=== PATIENT | female | born 1985 | race Caucasian/White ===

== ENCOUNTER 2016-07-12 12:18 | Emergency (ER) | payer MEDICARE, MEDICAID ==
[~2016-07-12] VITALS: Ht 165.1 cm; Wt 68.0 kg
[~2016-07-12 12:18] MED LIST: ALPR1TAB7 PO; FLUC150T PO; HYDR-3820 PO; ONDA8TAB13 PO; PHEN-639 PO; POTA-51 PO; SULF1TAB35 PO
[2016-07-12] MEDS ORDERED: ORPHENADRINE 60 MG/2 ML (NORFLEX) AMP IM ONE (12:30)
[2016-07-12] MEDS ORDERED: KETOROLAC 60 MG/2 ML VIAL IM ONE (12:30)
[2016-07-12] MEDS ORDERED: SULF1TAB35 PO (12:31)
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
[2016-07-12] MEDS ORDERED: FEXO1TAB43 PO (12:38)
[2016-07-12] MEDS ORDERED: HYDR12.5 PO (12:38)
[2016-07-12] MEDS ORDERED: NF-DICLOTA PO (12:38)
[2016-07-12] MEDS ORDERED: GABA-488 PO (12:38)
[2016-07-12] MEDS ORDERED: OXCA300T PO (12:38)
[2016-07-12] MEDS ORDERED: ESCI20TA PO (12:38)
[2016-07-12] MEDS ORDERED: AMOX500C2 PO (13:08)
--- NOTE | 2016-07-12 13:10 | Diagnostic Imaging Report ---
PROCEDURE: CT head and CT cervical spine without contrast. TECHNIQUE: Multiple contiguous axial images were obtained through the brain and cervical spine without the use of intravenous contrast. Sagittal and coronal reformations through the cervical spine were then performed. INDICATION: Status post fall. COMPARISON: Comparison is made with a CT head from May 27, 2016. FINDINGS: There is no CT evidence of acute intracranial hemorrhage. There is no evidence of intracranial mass effect or shift. Garcia and white matter differentiation appears preserved. The ventricles are appropriate in size and configuration. The basilar cisterns are patent. The posterior fossa is unremarkable. The mastoid air cells appear clear on the right. The mastoids on the left are hypopneumatized. The visualized paranasal sinuses are clear. Cervical spine alignment is normal. There is normal alignment of the craniocervical junction. There is a normal relationship of the lateral masses of C1 and C2. The facets are normally aligned. There is no disc space or facet joint widening. There is no prevertebral soft tissue thickening. Vertebral body heights are well maintained. There is no acute cervical spine fracture. Lung apices appear clear. Soft tissues of the neck demonstrate no acute abnormalities. IMPRESSION: 1. No CT evidence of an acute intracranial abnormality. 2. No CT evidence of acute cervical spine fracture or traumatic malalignment. Dictated by: Dictated on workstation # [id number]
[2016-07-12 13:27] VITALS: BP 128/82
[2016-07-12] MEDS ORDERED: flexeril PO (13:29)
[2016-09-12] MEDS ORDERED: CLIN150C17 PO (09:44)
[2016-09-12] MEDS ORDERED: PROM25TA14 PO (09:44)
== END 2016-07-12 13:27 | disposition home or self-care (01) ==
LOC: EDUNIT# 12:18 → ER 12:20
DX: S16.1XXA Strain of muscle, fascia and tendon at neck level, initial encounter (principal); T24.202A Burn of second degree of unspecified site of left lower limb, except ankle and foot, initial encounter; W10.9XXA Fall (on) (from) unspecified stairs and steps, initial encounter; X19.XXXA Contact with other heat and hot substances, initial encounter; Y92.009 Unspecified place in unspecified non-institutional (private) residence as the place of occurrence of the external cause; Y99.8 Other external cause status
CPT/HCPCS: 70450; 72125; 96372

== ENCOUNTER 2016-08-01 19:09 | Emergency (ER) | payer OTHER, MEDICARE, MEDICAID ==
[~2016-08-01] VITALS: Ht 167.6 cm; Wt 70.3 kg
[~2016-08-01 19:09] MED LIST changes: +AMOX500C2 PO; +ESCI20TA PO; +FEXO1TAB43 PO; +GABA-488 PO; +HYDR12.5 PO; +NF-DICLOTA PO; +OXCA300T PO; +flexeril PO
--- OUTSIDE RECORDS SUMMARY | 2016-08-01 19:16 | XMS REPORT | Continuity of Care Document ---
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 If you do not see the information that you expected, contact Release of Information in the Health Information Management department at [phone] for further assistance in locating additional records.[facility] Active Allergies and Adverse Reactions Not on File Current Medications Not on file Active Problems Not on file Most Recent Encounters Date Type Specialty Providers Description 07/24/2016 Telephone Neurology Rowena Will MD Appointment Social History Tobacco Use Types Packs/Day Years Used Date Never Assessed Plan of Care Date Type Specialty Providers Description 08/27/2016 Appointment Neurology Health Maintenance Due Date Last Done Comments Physical (Comprehensive) 01/16/1991 Exam Pertussis Vaccine 01/16/1995 Tetanus Vaccine 01/16/2001 Cervical Cancer Screening 01/16/2005 Influenza Vaccine 02/28/2016 Results from Last 3 Months Not on file
[2016-08-01] MEDS ORDERED: morphine INJ 10 MG/ML 1ML (SYR OR VIAL) IM STA (19:54)
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
[2016-08-01 20:15] LABS: BASOPHILS % (AUTO) 1 % (0-10); EOSINOPHILS # (AUTO) 0.1 10^3/uL (0.0-0.3); EOSINOPHILS % (AUTO) 1 % (0-10); LYMPHOCYTES % (AUTO) 34 % (12-44); MEAN CORPUSCULAR HEMOGLOBIN 30 PG (25-34); MEAN CORPUSCULAR HGB CONC 34 G/DL (32-36); MEAN CORPUSCULAR VOLUME 86 FL (80-99); MEAN PLATELET VOLUME 10.5 FL (7.4-10.4); MONOCYTES # (AUTO) 0.9 X 10^3 (0.0-1.0); MONOCYTES % (AUTO) 10 % (0-12); NEUTROPHILS # (AUTO) 4.8 X 10^3 (1.8-7.8); NEUTROPHILS % (AUTO) 55 % (42-75); PLATELET COUNT 330 10^3/uL (130-400); RED BLOOD COUNT 4.27 10^6/uL (4.35-5.85); RED CELL DISTRIBUTION WIDTH 12.9 % (10.0-14.5); WHITE BLOOD COUNT 8.8 10^3/uL (4.3-11.0)
[2016-08-01 20:19] LABS: PH,URINE 7 (5-9)
[2016-08-01 20:20] LABS: BILIRUBIN,URINE NEGATIVE (NEGATIVE); KETONES,URINE NEGATIVE (NEGATIVE); LEUKOCYTE ESTERASE ,URINE 1+ (NEGATIVE); NITRITE,URINE NEGATIVE (NEGATIVE); PROTEIN,URINE 1+ (NEGATIVE); UROBILINOGEN,URINE NORMAL (NORMAL); WBC,URINE 0-2 /HPF
[2016-08-01 20:34] LABS: ALANINE AMINOTRANSFERASE 52 U/L (0-55); ALBUMIN 4.5 G/DL (3.2-4.5); ANION GAP 10 MMOL/L (5-14); ASPARTATE AMINO TRANSFERASE 33 U/L (5-34); BILIRUBIN,TOTAL 0.2 MG/DL (0.1-1.0); BLOOD UREA NITROGEN 9 MG/DL (7-18); BUN/CREATININE RATIO 12; CALCIUM 8.9 MG/DL (8.5-10.1); CARBON DIOXIDE 25 MMOL/L (21-32); CHLORIDE 94 MMOL/L (98-107); CREATININE SERUM 0.75 MG/DL (0.60-1.30); GFR ESTIMATED > 60; GLUCOSE 72 MG/DL (70-105); POTASSIUM 3.3 MMOL/L (3.6-5.0); SODIUM 129 MMOL/L (135-145); TOTAL PROTEIN 6.5 G/DL (6.4-8.2)
[2016-08-01 21:33] VITALS: BP 126/82
[2016-09-12] MEDS ORDERED: CLIN150C17 PO (09:44)
[2016-09-12] MEDS ORDERED: PROM25TA14 PO (09:44)
== END 2016-08-01 21:32 | disposition home or self-care (01) ==
LOC: EDUNIT# 19:09 → ER 19:10
DX: S29.011A Strain of muscle and tendon of front wall of thorax, initial encounter (principal); M79.7 Fibromyalgia; G40.909 Epilepsy, unspecified, not intractable, without status epilepticus; F31.9 Bipolar disorder, unspecified; F17.210 Nicotine dependence, cigarettes, uncomplicated; Z79.899 Other long term (current) drug therapy; V43.52XA Car driver injured in collision with other type car in traffic accident, initial encounter; Y92.009 Unspecified place in unspecified non-institutional (private) residence as the place of occurrence of the external cause; Y99.8 Other external cause status
CPT/HCPCS: 36415; 80053; 81000; 85025; 96372; 99282

== ENCOUNTER 2016-08-05 20:20 | Emergency (ER) | payer OTHER, MEDICARE, MEDICAID ==
[~2016-08-05] VITALS: Ht 162.6 cm; Wt 72.6 kg
--- OUTSIDE RECORDS SUMMARY | 2016-08-05 20:25 | XMS REPORT | Continuity of Care Document ---
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 If you do not see the information that you expected, contact Release of Information in the Health Information Management department at [phone] for further assistance in locating additional records.[facility] Active Allergies and Adverse Reactions Not [...]
[2016-08-05] MEDS ORDERED: ORPHENADRINE 60 MG/2 ML (NORFLEX) AMP IM STA (21:45)
[2016-08-05] MEDS ORDERED: morphine INJ 10 MG/ML 1ML (SYR OR VIAL) IM STA (21:45)
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
[2016-08-05] MEDS ORDERED: CYCL10TA9 PO (23:52)
[2016-08-05] MEDS ORDERED: PRD20T PO (23:52)
[2016-08-05] MEDS ORDERED: RT-ALBUINH IH (23:58)
[2016-08-06] MEDS ORDERED: CIPR500T4 PO (00:16)
[2016-08-06] MEDS ORDERED: FLUC150T PO (00:16)
[2016-08-06 00:33] VITALS: BP 110/78
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
[2016-09-12] MEDS ORDERED: PROM25TA14 PO (09:44)
[2016-09-12] MEDS ORDERED: CLIN150C17 PO (09:44)
== END 2016-08-06 00:33 | disposition home or self-care (01) ==
LOC: EDUNIT# 20:20 → ER 20:21
DX: S39.012A Strain of muscle, fascia and tendon of lower back, initial encounter (principal); S39.011A Strain of muscle, fascia and tendon of abdomen, initial encounter; R51 Headache; M54.16 Radiculopathy, lumbar region; J98.11 Atelectasis; Z79.899 Other long term (current) drug therapy; V43.52XA Car driver injured in collision with other type car in traffic accident, initial encounter; Y92.410 Unspecified street and highway as the place of occurrence of the external cause; Y99.8 Other external cause status
CPT/HCPCS: 70450; 71100; 72128; 72131; 96372; 99281

== ENCOUNTER 2016-09-11 05:48 | Observation (INO) | payer MEDICARE, MEDICAID ==
[~2016-09-11] VITALS: Ht 162.6 cm; Wt 63.5 kg
[~2016-09-11 05:48] MED LIST changes: +CIPR500T4 PO; +CYCL10TA9 PO; +PRD20T PO; +RT-ALBUINH IH
--- OUTSIDE RECORDS SUMMARY | 2016-09-11 05:57 | XMS REPORT | Continuity of Care Document ---
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 If you do not see the information that you expected, contact Release of Information in the Health Information Management department at [phone] for further assistance in locating additional records.[facility] Active Allergies and Adverse Reactions Allergen Noted Date Severity Reactions Comments Bactrim 08/27/2016 Medium HIVES Ceclor 08/27/2016 High ANAPHYLAXIS Current Medications Prescription Sig. Disp. Refills Start End Date Status Date polyethylene glycol 3350 Take 17 g by mouth daily. Active (MIRALAX) 17 g packet albuterol (VENTOLIN HFA) Inhale 2 Puffs by mouth Active 90 mcg/actuation inhaler into the lungs every 4 hours as needed for Wheezing or Shortness of Breath. Shake well before use. ALPRAZolam (XANAX) 1 mg Take 1 mg by mouth three Active tablet times daily. prednisone (DELTASONE) 20 Take 20 mg by mouth as Active mg tablet directed. Take 2 tablets by mouth once daily for 6 days albuterol (PROVENTIL HFA) Inhale 2 Puffs by mouth Active 90 mcg/actuation inhaler into the lungs every 4 hours as needed for Wheezing or Shortness of Breath. Shake well before use. HYDROcodone/acetaminophen Take 1 Tab by mouth every Active (+) (NORCO) 10/325 mg 6 hours as needed for tablet Pain OXcarbazepine (TRILEPTAL) Take 450 mg by mouth Active 300 mg tablet twice daily. fluconazole (DIFLUCAN) Take 150 mg by mouth Active 150 mg tablet daily. linaclotide(+) (LINZESS) Take 145 mcg by mouth Active 145 mcg cap capsule daily 30 minutes before breakfast. diclofenac sodium Take 100 mg by mouth Active (VOLTAREN-XR) 100 mg xr daily. Take with food. tablet amoxicillin (AMOXIL) 500 Take 500 mg by mouth Active mg capsule every 4 hours. 10 days hydroCHLOROthiazide Take 12.5 mg by mouth Active (HYDRODIURIL) 12.5 mg every morning. capsule fexofenadine(+) (CONCEPCION) Take 180 mg by mouth Active 180 mg tablet daily. gabapentin (NEURONTIN) Take 600 mg by mouth Active 600 mg tablet three times daily. Active Problems Problem Noted Date Fatigue 08/27/2016 Myalgia 08/27/2016 Dry mouth 08/27/2016 Dysphagia 08/27/2016 Exercise intolerance 08/27/2016 Most Recent Encounters Date Type Specialty Providers Description 08/29/2016 Scan Only Neurology Rowena Will MD 08/27/2016 Office Visit Neurology Rowena Will MD Chronic fatigue ( Primary Dx); Myalgia; Dry mouth; Dysphagia, unspecified type; Exercise intolerance 08/27/2016 Orders Only Neurology Rowena Will MD 07/24/2016 Telephone Neurology Rowena Will MD Appointment Social History Tobacco Use Types Packs/Day Years Used Date Current Every Day Smoker Cigarettes 12 Tobacco Cessation: Ready to Quit: Yes Comments: Alcohol Use Drinks/Week oz/Week Comments No Last Filed Vital Signs Vital Sign Reading Time Taken Blood Pressure 115/68 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 Pulse 88 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 Temperature - - Respiratory Rate - - Height 1.676 m (5' 6") 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 Weight 75.206 kg (165 lb 12.8 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 oz) Body Mass Index 26.77 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 Oxygen Saturation - - Plan of Care Date Type Specialty Providers Description 09/23/2016 Appointment Neurology Rowena Will MD [phone] [facility] [address] [place] [address] [phone] (Fax) 01/05/2017 Appointment Neurology Rowena Will MD [phone] [facility] [address] [place] [address] [phone] (Fax) Health Maintenance Due Date Last Done Comments Physical (Comprehensive) 01/16/1991 Exam Pertussis Vaccine 01/16/1995 Tetanus Vaccine 01/16/2001 Cervical Cancer Screening 01/16/2005 Influenza Vaccine 02/27/2017 Results from Last 3 Months ALDOLASE (08/27/2016 3:53 PM) Component Value Range Aldolase 3.4Comment: < OR=8.1 U/L REPORT COMMENT: FASTING:NO Test [facility]formed at[facility] [address] JITENDRA STEEL DO,MPH ANTI SSA ANTI SSB AB (08/27/2016 3:53 PM) Component Value Range Anti-SSA <1.0 NEG <1.0 NEG AI Anti-SSB <1.0 NEGComment: <1.0 NEG AI Test Performed at: [facility] [address] [address] JITENDRA STEEL DO,MPH ANTI-NUCLEAR ANTIBODY(NICHO) (08/27/2016 3:53 PM) Component Value Range NICHO Screen NEGATIVEComment: NEGATIVE NICHO IFA is a first line screen for detecting the presence of up to approximately 150 autoantibodies in various autoimmune diseases. A negative NICHO IFA result suggests NICHO-associated autoimmune diseases are not present at this time. Visit Physician FAQs for interpretation of all antibodies in the [place], prevalence, and association with diseases at http://education.A Curated World/ faq/DDL351 Test Performed at: [facility] [address] JITENDRA STEEL DO,MPH PYRUVATE(PYRUVIC ACID) (08/27/2016 3:53 PM) Component Value Range Pyruvic Acid 1.63 (H)Comment: 0.30-1.50 mg/dL Test Performed at: [facility] MICA HOPKINS MD,PHD LACTIC ACID(LACTATE) (08/27/2016 3:53 PM) Component Value Range Lactic Acid 16Comment: 4-16 mg/dL Test Performed at: [facility] MICA HOPKINS MD,PHD CREATINE KINASE-CPK (08/27/2016 3:53 PM) Component Value Range Creatine Kinase 33Comment: 29-143 U/L Test Performed at: [facility] [place] [address] [place] [address] JITENDRA STEEL DO,MPH
[2016-09-11] MEDS ORDERED: NS IV 1000 ML 1,000 ML IV ONE (07:44)
[2016-09-11] MEDS ORDERED: KETOROLAC 30 MG/ML VIAL IVP ONE (07:45)
[2016-09-11 08:13] LABS: BASOPHILS % (AUTO) 0 % (0-10); EOSINOPHILS # (AUTO) 0.1 10^3/uL (0.0-0.3); EOSINOPHILS % (AUTO) 0 % (0-10); LYMPHOCYTES # (AUTO) 1.5 X 10^3 (1.0-4.0); LYMPHOCYTES % (AUTO) 10 % (12-44); MEAN CORPUSCULAR HEMOGLOBIN 29 PG (25-34); MEAN CORPUSCULAR HGB CONC 34 G/DL (32-36); MEAN CORPUSCULAR VOLUME 84 FL (80-99); MEAN PLATELET VOLUME 10.3 FL (7.4-10.4); MONOCYTES # (AUTO) 1.4 X 10^3 (0.0-1.0); MONOCYTES % (AUTO) 9 % (0-12); NEUTROPHILS % (AUTO) 80 % (42-75); PLATELET COUNT 377 10^3/uL (130-400); RED BLOOD COUNT 3.94 10^6/uL (4.35-5.85); WHITE BLOOD COUNT 14.9 10^3/uL (4.3-11.0)
[2016-09-11 08:32] LABS: BAND NEUTROPHILS 3 %; BASOPHILS % (MANUAL) 0 %; EOSINOPHILS % (MANUAL) 1 %; LYMPHOCYTES % (MANUAL) 6 %; NEUTROPHILS % (MANUAL) 81 %
[2016-09-11] MEDS ORDERED: fentaNYL INJECTION 100 MCG/2 ML AMP IVP ONE ×2 (09:45→10:45)
--- NOTE | 2016-09-11 09:46 | Diagnostic Imaging Report ---
Ultrasound of the left axilla. INDICATION: Painful lump. FINDINGS: There is a 2.7 x 1.7 x 2.5-cm lymph node with preserved fatty hilum seen in the axilla. There is no fluid collection or evidence of abscess. IMPRESSION: No evidence of abscess. There is a mildly enlarged lymph node seen. Dictated by: Dictated on workstation # [id number]
[2016-09-11 10:08] LABS: ALANINE AMINOTRANSFERASE 26 U/L (0-55); ALBUMIN 3.7 G/DL (3.2-4.5); ANION GAP 8 MMOL/L (5-14); ASPARTATE AMINO TRANSFERASE 23 U/L (5-34); BILIRUBIN,TOTAL 0.4 MG/DL (0.1-1.0); BLOOD UREA NITROGEN 9 MG/DL (7-18); BUN/CREATININE RATIO 13; CALCIUM 8.5 MG/DL (8.5-10.1); CARBON DIOXIDE 22 MMOL/L (21-32); CHLORIDE 104 MMOL/L (98-107); CREATININE SERUM 0.67 MG/DL (0.60-1.30); GFR ESTIMATED > 60; GLUCOSE 89 MG/DL (70-105); SODIUM 134 MMOL/L (135-145); TOTAL PROTEIN 5.9 G/DL (6.4-8.2)
[2016-09-11] MEDS ORDERED: VANCOMYCIN INJECTION 1,000 MG in NS (IVPB) 250 ML IV ONE (10:15)
--- NOTE | 2016-09-11 10:34 | ED General ---
General Chief Complaint: Skin/Wound Problems Stated Complaint: LEFT SIDE UNDER ARM,LYMPH NODES SWOLLEN Nursing Triage Note: reports L axillae lymph nodes swelling x 3 days Nursing Sepsis Screen: No Definite Risk Source of Information: Patient Exam Limitations: No Limitations History of Present Illness Time Seen by Provider: 07:35 Initial Comments This 31-year-old young lady presents to emergency room with about 3 days of pain and worsening swelling in the left axilla. Last night she had night sweats and reported a fever at home of 101. She believes she is dehydrated as she is extremely thirsty. She has a borderline elevated temperature along with tachycardia on initial assessment. Patient denies any history of prior abscesses or MRSA. Patient reports she has recently been on steroids which she finished about 2 weeks ago. She later mentioned she is also on azithromycin at present for respiratory symptoms. Allergies and Home Medications Allergies Coded Allergies: Sulfa (Sulfonamide Antibiotics) (Verified Allergy, Unknown, hives, 08/05/16) cefaclor (Verified Allergy, Unknown, 05/10/16) Home Medications Albuterol Sulfate 6.7 Gm Hfa.aer.ad 2 PUFF IH Q4H PRN PRN SHORTNESS OF BREATH ( Reported) Alprazolam 1 Mg Tablet 1 MG PO TID (Reported) Azithromycin 250 Mg Tablet 5Days 250 MG PO UD (Reported) TAKE 2 TABLETS ON DAY ONE THEN TAKE 1 TABLET DAILY FOR FOUR MORE DAYS FILLED 09-08-16 Diclofenac Sod 100 Mg Tab 100 MG PO DAILY (Reported) LAST FILLED #30 08-09-16 Escitalopram Oxalate 20 Mg Tablet 20 MG PO DAILY (Reported) Fexofenadine/Pseudoephedrine 1 Each Tab.er.24h 1 TAB PO DAILY (Reported) Fluconazole 150 Mg Tablet 3Days 150 MG PO DAILY (Reported) 3 DAY THERAPY FILLED 09-08-16 HAS NOT STARTED TAKING IT YET Gabapentin 600 Mg Tablet 600 MG PO TID (Reported) Hydrocodone/Acetaminophen 1 Each Tablet 1 TAB PO TID PRN PRN PAIN (Reported) Ibuprofen 200 Mg Tablet 600 MG PO TID PRN PRN MILD PAIN (Reported) TAKES 3 (200MG) TABLETS Oxcarbazepine 300 Mg Tablet 300 MG PO BID (Reported) Spironolactone 25 Mg Tablet 25 MG PO DAILY (Reported) Constitutional: see HPI EENTM: no symptoms reported Respiratory: see HPI Cardiovascular: see HPI Gastrointestinal: no symptoms reported Genitourinary: no symptoms reported : No Musculoskeletal: no symptoms reported Skin: see HPI Psychiatric/Neurological: No Symptoms Reported Hematologic/Lymphatic: See HPI Past Cldscns-Hyqlhd-Mxukvu Hx Patient Social History Alcohol Use: Denies Use Recreational Drug Use: No Smoking Status: Current Everyday Smoker Type Used: Cigarettes Recent Foreign Travel: No Contact w/Someone Who Travel: No Recent Infectious Disease Expo: No Recent Hopitalizations: No Immunizations Up To Date Tetanus Booster (TDap): Unknown Seasonal Allergies Seasonal Allergies: No Surgeries HX Surgeries: Yes Surgeries: Section, Hysterectomy Respiratory Hx Respiratory Disorders: Yes Respiratory Disorders: Asthma, Chronic Bronchitis Cardiovascular Hx Cardiac Disorders: No Neurological Hx Neurological Disorders: Yes Neurological Disorders: Seizure Disorder 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 Genitourinary Hx Genitourinary Disorders: No Gastrointestinal Hx Gastrointestinal Disorders: No Musculoskeletal Hx Musculoskeletal Disorders: Yes ("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") Musculoskeletal Disorders: Fibromyalgia, Chronic Back Pain Endocrine Hx Endocrine Disorders: No HEENT HX ENT Disorders: No Cancer Hx Cancer: No Psychosocial Hx Psychiatric Problems: Yes Behavioral Health Disorders: Anxiety, ODD, PTSD, Bipolar, Depression Integumentary HX Skin/Integumentary Disorder: No Blood Transfusions Hx Blood Disorders: No Adverse Reaction to a Blood Tr: No Family Medical History Significant Family History: No Pertinent Family Hx Physical Exam-Suspected Sepsis Physical Exam Vital Signs Vital Sign - Last 12Hours 09/11/16 09/11/16 06:42 12:00 Temp 99.8 Pulse 105 Resp 18 B/P 111/65 Pulse Ox 99 O2 Delivery Room Air Capillary Refill : Less Than 3 Seconds Blood Pressure Mean: 80 General Appearance: WD/WN Mild Distress HEENT: Normal ENT Inspection Pharynx Normal Neck: Normal Inspection Respiratory: Lungs Clear Normal Breath Sounds No Accessory Muscle Use No Respiratory Distress Cardiovascular: No Edema No Murmur Tachycardia Gastrointestinal: Non Tender Soft Extremity: Other (There is a palpable lump fairly deep in the left axilla with surrounding erythema, swelling, and tenderness. 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 Norm as Tested Skin: warm/dry other (Erythema in the left axilla and nearby left upper arm) Lymphatic: Other (Possible enlarged left axillary lymph node) Progress/Results/Core Measures Suspected Sepsis Recent Fever Within 48 Hours: No Infection Criteria Present: Suspected New Infection New/Unexplained Altered Menta: No Sepsis Screen: No Definite Risk Sepsis Diagnosis: SIRS Temperature:99.3 Pulse: 92 Respiratory Rate: 18 Laboratory Tests 09/11/16 08:00: White Blood Count 14.9H Blood Pressure 111 /65 Mean: 80 Laboratory Tests 09/11/16 08:00: Creatinine 0.67, Platelet Count 377, Total Bilirubin 0.4 Results/Orders Lab Results Laboratory Tests Test 09/11/16 08:00 Range/Units Alanine Aminotransferase (ALT/SGPT) 26 0-55 U/L Albumin 3.7 3.2-4.5 G/DL Alkaline Phosphatase 74 40-136 U/L Anion Gap 8 5-14 MMOL/L Aspartate Amino Transf (AST/SGOT) 23 5-34 U/L BUN/Creatinine Ratio 13 Band Neutrophils 3 % Basophils # (Auto) 0.0 0.0-0.1 10^3/uL Basophils % (Manual) 0 % Basophils (%) (Auto) 0 0-10 % Blood Morphology Comment NORMAL Blood Urea Nitrogen 9 7-18 MG/DL C-Reactive Protein High Sensitivity 3.50 H 0.00-0.50 MG/DL Calcium Level 8.5 8.5-10.1 MG/DL Carbon Dioxide Level 22 21-32 MMOL/L Chloride Level 104 98-107 MMOL/L Creatinine 0.67 0.60-1.30 MG/DL Eosinophils # (Auto) 0.1 0.0-0.3 10^3/uL Eosinophils % (Manual) 1 % Eosinophils (%) (Auto) 0 0-10 % Estimat Glomerular Filtration Rate > 60 Glucose Level 89 70-105 MG/DL Hematocrit 33 L 35-52 % Hemoglobin 11.3 L 11.5-16.0 G/DL Lactic Acid Level 0.68 0.50-2.00 MMOL/L Lymphocytes # (Auto) 1.5 1.0-4.0 X 10^3 Lymphocytes % (Manual) 6 % Lymphocytes (%) (Auto) 10 L 12-44 % Mean Corpuscular Hemoglobin 29 25-34 PG Mean Corpuscular Hemoglobin Concent 34 32-36 G/DL Mean Corpuscular Volume 84 80-99 FL Mean Platelet Volume 10.3 7.4-10.4 FL Monocytes # (Auto) 1.4 H 0.0-1.0 X 10^3 Monocytes % (Manual) 9 % Monocytes (%) (Auto) 9 0-12 % Neutrophils # (Auto) 12.0 H 1.8-7.8 X 10^3 Neutrophils % (Manual) 81 % Neutrophils (%) (Auto) 80 H 42-75 % Platelet Count 377 130-400 10^3/uL Potassium Level 4.0 3.6-5.0 MMOL/L Red Blood Count 3.94 L 4.35-5.85 10^6/uL Red Cell Distribution Width 14.0 10.0-14.5 % Sodium Level 134 L 135-145 MMOL/L Total Bilirubin 0.4 0.1-1.0 MG/DL Total Protein 5.9 L 6.4-8.2 G/DL White Blood Count 14.9 H 4.3-11.0 10^3/uL My Orders Orders-DAVID CASTRO MD Cbc With Automated Diff (09/11/16 07:44) Hs C Reactive Protein (09/11/16 07:44) Saline Lock/Iv-Start (09/11/16 07:44) Ns Iv 1000 Ml (Sodium Chloride 0.9%) (09/11/16 07:44) Ketorolac Injection (Toradol Injection) (09/11/16 07:45) Blood Culture (09/11/16 07:44) Wound Culture (09/11/16 07:44) Lactic Acid Analyzer (09/11/16 07:44) Manual Differential (09/11/16 08:00) Us Left Upper Ext [id number] (09/11/16 08:59) Comprehensive Metabolic Panel (09/11/16 09:43) Fentanyl Injection (Sublimaze Injection (09/11/16 09:45) Vancomycin Injection (Vancomycin Injecti (09/11/16 10:15) Chest 1 View, Ap/Pa Only (09/11/16 10:36) Fentanyl Injection (Sublimaze Injection (09/11/16 10:45) Medications Given in ED Current Medications Medications Dose Ordered Sig/Addie Route Start Time Stop Time Status Last Admin Dose Admin Fentanyl Citrate 50 mcg 50 mcg ONCE ONCE IVP 09/11/16 09:45 09/11/16 09:46 DC 09/11/16 09:50 50 MCG Vancomycin HCl/ Sodium Chloride 250 ml @ 250 mls/hr ONCE ONCE IV 09/11/16 10:15 3/16/17 11:14 DC 09/11/16 10:32 250 MLS/HR Vital Signs/I&O Vital Sign - Last 12Hours 09/11/16 09/11/16 09/11/16 09/11/16 09:45 11:47 12:00 13:19 Temp 99.3 99.3 Pulse 92 91 Resp 16 Pulse Ox 97 97 O2 Delivery Room Air 09/11/16 09/11/16 09/11/16 13:55 16:07 19:44 Temp 97.3 97.3 98.4 Pulse 60 76 Resp 18 16 B/P 107/63 116/75 Pulse Ox 100 98 O2 Delivery Room Air Room Air Capillary Refill : Less Than 3 Seconds Blood Pressure Mean: 80 Progress Note #1: Progress Note Sepsis was suspected after source of infection with cellulitis was identified along with leukocytosis and tachycardia. Heart rate improved with a liter of normal saline. Pain was treated with Toradol followed by fentanyl. Vancomycin was initiated in the emergency room after blood cultures were drawn. Progress Note #2: Time: 10:35 Progress Note Upon further questioning of recent antibiotic use, patient states she is on azithromycin for upper respiratory symptoms which she did not mention initially. Chest x-ray was ordered as a result. She did state prednisone has been finished for about 2 weeks and should therefore not be responsible for her leukocytosis. Diagnostic Imaging Diagonstic Imaging: Xray Plain Films/CT/US/NM/MRI: chest Comments Chest x-ray viewed by me. Report not yet available at the time of admission. No acute abnormalities were appreciated by the ER provider. Diagonstic Imaging: Ultrasound Plain Films/CT/US/NM/MRI: other (left axilla) Comments NAME: KOURTNEY CHAMPAGNE [employer] [facility] REC#: [id number] PT STATUS: REG ER : 1985 PHYSICIAN: DAVID CASTRO MD ADMIT DATE: 09/11/16/ER Signed Date of Exam: 09/11/16 US LEFT UPPER EXT [id number] Ultrasound of the left axilla. INDICATION: Painful lump. FINDINGS: There is a 2.7 x 1.7 x 2.5-cm lymph node with preserved fatty hilum seen in the axilla. There is no fluid collection or evidence of abscess. IMPRESSION: No evidence of abscess. There is a mildly enlarged lymph node seen. Dictated by: Dictated on workstation # [id number] Dict: 09/11/16 0941 Trans: 09/11/16 0957 MAIKEL [id number] Interpreted by: SOURAV REYNA MD Electronically signed by:SOURAV REYNA MD 09/11/16 1000 Departure Communication Time/Spoke to Admitting Phy: 10:25 Communication Case reviewed with Dr. Britton. She is agreeable to admitting the patient for at least observation to ensure improvement on antibiotics before discharge home. Patient technically meets criteria for sepsis as she has met SIRS criteria with tachycardia, leukocytosis, and source of infection. Impression Impression: Primary Impression: Sepsis Qualified Code: A41.9 - Sepsis, unspecified organism Additional Impressions: Cellulitis of left axilla Lymphadenitis Disposition: ADMITTED INPATIENT Condition: Improved Decision to Admit Reason: Admit from ER (General) Decision to Admit/Date: Sep 11, 2016 Time/Decision to Admit Time: 07:44 Departure-Patient Inst. Referrals: [facility] (PCP/Family) Primary Care Physician DAVID CASTRO MD Sep 11, 2016 10:34
--- NOTE | 2016-09-11 11:07 | Diagnostic Imaging Report ---
Posterior Lopressor the chest. Indication is a less than. Units: The lungs are clear. The heart size is normal. No effusion or pneumothorax. The mediastinum and chris appear unremarkable. IMPRESSION: Unremarkable exam. Dictated by: Dictated on workstation # [id number]
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
[2016-09-11] MEDS ORDERED: NS IV 1000 ML 1,000 ML ONE (13:02)
[2016-09-11] MEDS ORDERED: KETOROLAC 30 MG/ML VIAL ONE (13:03)
[2016-09-11] MEDS ORDERED: RT-ALBUINH IH (13:03)
[2016-09-11] MEDS ORDERED: GABA600T2 PO (13:03)
[2016-09-11] MEDS ORDERED: SPIR25TA PO (13:03)
[2016-09-11] MEDS ORDERED: AZIT250T5 PO (13:03)
[2016-09-11] MEDS ORDERED: FLUC150T2 PO (13:03)
[2016-09-11] MEDS ORDERED: CYCL10TA9 PO (13:03)
[2016-09-11] MEDS ORDERED: VANCOMYCIN 1500 MG/NS 500 ML IVPB IV NR ×2 (13:08)
[2016-09-11] MEDS ORDERED: IBUP-30 PO (13:18)
[2016-09-11] MEDS: KETOROLAC 30 MG/ML VIAL IVP PRN (13:19)
[2016-09-11] MEDS: NS IV 1000 ML 1,000 ML IV SCH (13:20)
[2016-09-11] MEDS ORDERED: VANCOMYCIN 500 MG/NS 100 ML IVPB IV NR ×2 (13:30)
[2016-09-11] MEDS ORDERED: CATHETER FLUSH 10 ML SYR IV PRN (13:45)
[2016-09-11] MEDS: CLINDAMYCIN 900 MG/50 ML IVPB 50 ML IV SCH ×2 (15:29→21:10)
[2016-09-11 16:07] VITALS: BP 107/63
[2016-09-11] MEDS: HYDROcodone/APAP 10 MG/325 MG (LORTAB) TAB PO PRN ×2 (16:47→21:03)
[2016-09-11] MEDS ORDERED: RT-ALBUTEROL HFA (VENTOLIN) PER PUFF IH PRN (19:00)
[2016-09-11] MEDS ORDERED: ALBUTEROL INHALER HFA (VENTOLIN HFA) 18 GM IH PRN (19:30)
[2016-09-11 19:44] VITALS: BP 116/75
[2016-09-11] MEDS: ALPRAZolam 1 MG (XANAX) TAB PO SCH (21:03)
[2016-09-11] MEDS: OXcarbazepine (TRILEPTAL) 300 MG TAB PO SCH (21:03)
[2016-09-11] MEDS: GABAPENTIN 600 MG (NEURONTIN) TAB PO SCH (21:03)
[2016-09-12 00:40] VITALS: BP 121/63
[2016-09-12] MEDS: VANCOMYCIN 1 GM/NS 250 ML IVPB IV SCH ×4 (00:44→13:00)
[2016-09-12] MEDS: NS IV 1000 ML 1,000 ML IV SCH ×2 (00:44→08:28)
[2016-09-12] MEDS: KETOROLAC 30 MG/ML VIAL IVP PRN ×2 (02:32→10:41)
[2016-09-12 04:52] VITALS: BP 136/72
[2016-09-12 04:58] LABS: BASOPHILS % (AUTO) 0 % (0-10); EOSINOPHILS # (AUTO) 0.1 10^3/uL (0.0-0.3); EOSINOPHILS % (AUTO) 1 % (0-10); LYMPHOCYTES # (AUTO) 1.8 X 10^3 (1.0-4.0); LYMPHOCYTES % (AUTO) 16 % (12-44); MEAN CORPUSCULAR HEMOGLOBIN 29 PG (25-34); MEAN CORPUSCULAR HGB CONC 34 G/DL (32-36); MEAN CORPUSCULAR VOLUME 86 FL (80-99); MEAN PLATELET VOLUME 10.9 FL (7.4-10.4); MONOCYTES % (AUTO) 9 % (0-12); NEUTROPHILS # (AUTO) 8.1 X 10^3 (1.8-7.8); NEUTROPHILS % (AUTO) 74 % (42-75); PLATELET COUNT 313 10^3/uL (130-400); RED BLOOD COUNT 3.45 10^6/uL (4.35-5.85)
[2016-09-12] MEDS: CLINDAMYCIN 900 MG/50 ML IVPB 50 ML IV SCH (05:57)
[2016-09-12 08:00] VITALS: BP 120/79
[2016-09-12] MEDS: GABAPENTIN 600 MG (NEURONTIN) TAB PO SCH ×2 (08:26→12:31)
[2016-09-12] MEDS: HYDROcodone/APAP 10 MG/325 MG (LORTAB) TAB PO PRN ×2 (08:26→12:31)
[2016-09-12] MEDS: ALPRAZolam 1 MG (XANAX) TAB PO SCH ×2 (08:26→12:31)
[2016-09-12] MEDS: OXcarbazepine (TRILEPTAL) 300 MG TAB PO SCH (08:27)
[2016-09-12] MEDS ORDERED: NON-FORMULARY MEDICATION 1 EA EA (Escitalopram Oxalate (Lexapro) 20 MG) PO SCH (09:00)
[2016-09-12] MEDS ORDERED: SPIRONOLACTONE 25 MG (ALDACTONE) TAB PO SCH (09:00)
[2016-09-12] MEDS ORDERED: CLIN150C17 PO (09:44)
[2016-09-12] MEDS ORDERED: PROM25TA14 PO (09:44)
[2016-09-12] MEDS ORDERED: ONDANSETRON 4 MG (ZOFRAN) ORAL DISSOLVE TAB PO NR (09:58)
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
[2016-09-12 12:00] VITALS: BP 107/72
[2016-09-12] MEDS ORDERED: TROUGH ORDER-PHARMACY XX NR (12:00)
[2016-09-12] MEDS ORDERED: CLINDAMYCIN 150 MG (CLEOCIN) CAP PO SCH (14:00)
--- NOTE | 2016-09-12 17:00 | Discharge Instructions ---
Discharge [facility] Discharge Medications New, Converted or Re-Newed RX: Transmitted to Pharmacy New Medications: Clindamycin HCl (Clindamycin HCl) 150 Mg Capsule 450 MG PO Q6H #120 Ref 0 CAP Promethazine HCl (Promethazine Tablet) 25 Mg Tablet 25 MG PO Q6H PRN NAUSEA/VOMITING #30 Ref 0 TAB Continued Medications: Albuterol Sulfate (Proventil Hfa) 6.7 Gm Hfa.aer.ad 2 PUFF IH Q4H PRN SHORTNESS OF BREATH EACH Alprazolam (Alprazolam) 1 Mg Tablet 1 MG PO TID TAB Diclofenac Sod (Diclofenac Sodium ER) 100 Mg Tab 100 MG PO DAILY LAST FILLED #30 08-09-16 TAB Escitalopram Oxalate (Lexapro) 20 Mg Tablet 20 MG PO DAILY TAB Fexofenadine/Pseudoephedrine (Aleja-D 24 Hour Tablet) 1 Each Tab.er.24h 1 TAB PO DAILY TAB Gabapentin (Gabapentin) 600 Mg Tablet 600 MG PO TID TAB Hydrocodone/Acetaminophen (Hydrocodon-Acetaminophn 10-325) 1 Each Tablet 1 TAB PO TID PRN PAIN TAB Oxcarbazepine (Oxcarbazepine) 300 Mg Tablet 300 MG PO BID TAB Spironolactone (Aldactone) 25 Mg Tablet 25 MG PO DAILY TAB Discontinued Medications: Azithromycin (Azithromycin) 250 Mg Tablet 250 MG PO UD TAKE 2 TABLETS ON DAY ONE THEN TAKE 1 TABLET DAILY FOR FOUR MORE DAYS FILLED 09-08-17 Days 5 TAB Fluconazole (Fluconazole) 150 Mg Tablet 150 MG PO DAILY 3 DAY THERAPY FILLED 09-08-16 HAS NOT STARTED TAKING IT YET Days 3 TAB Ibuprofen (Advil) 200 Mg Tablet 600 MG PO TID TAKES 3 (200MG) TABLETS PRN MILD PAIN TAB Patient Instructions Goal/Follow Up Appt: Follow up with Denny on 09/18 at 4:20 pm. Return to [facility] For: Fever, worsening redness and swelling under arm, inability to keep down antibiotics Activity & Diet Discharge Diet: Regular Diet Activity as Tolerated: Yes Copy Copies To 1: CASEY Salas BETHANY N MD Sep 12, 2016 9:46 am
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
== END 2016-09-12 15:38 | disposition home or self-care (01) ==
LOC: EDUNIT# 05:48 → ER 05:52 → 4TH 10:44 → UNDOADMOB 10:44 → 4TH 11:45
PROVIDERS: ADMIT Family Medicine; ATTEND Family Medicine
DX: L03.112 Cellulitis of left axilla (principal); M79.7 Fibromyalgia; F32.9 Major depressive disorder, single episode, unspecified; F41.9 Anxiety disorder, unspecified; F43.10 Post-traumatic stress disorder, unspecified; J32.9 Chronic sinusitis, unspecified; G40.909 Epilepsy, unspecified, not intractable, without status epilepticus
CPT/HCPCS: 36415; 71010; 76881; 80053; 80202; 83605; 85007; 85025; 85027; 86141; 87040; 96361; 96365; 96375; 96376; 99211; G0378

== ENCOUNTER 2016-09-15 10:07 | Emergency (ER) | payer MEDICARE, MEDICAID ==
[~2016-09-15] VITALS: Ht 165.1 cm; Wt 77.6 kg
[~2016-09-15 10:07] MED LIST changes: +AZIT250T5 PO; +CLIN150C17 PO; +FLUC150T2 PO; +GABA600T2 PO; +IBUP-30 PO; +PROM25TA14 PO; +SPIR25TA PO
--- OUTSIDE RECORDS SUMMARY | 2016-09-15 10:13 | XMS REPORT | Continuity of Care Document ---
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 If you do not see the information that you expected, contact Release of Information in the Health Information Management department at [phone] for further assistance in locating additional records.[facility] [...] Recent Encounters Date Type Specialty Providers Description 09/12/2016 Telephone Neurology Rowena Will MD Appointment Request 08/29/2016 Scan Only Neurology Rowena Will MD [...] Taken Blood Pressure 115/68 08/27/2016 1:54 PM CLINICAL EDITOR Pulse 88 08/27/2016 1:54 PM CLINICAL EDITOR Temperature - - Respiratory Rate - - Height 1.676 m (5' 6") 08/27/2016 1:54 PM CLINICAL EDITOR Weight 75.206 kg (165 lb 12.8 08/27/2016 1:54 PM CLINICAL EDITOR oz) Body Mass Index 26.77 08/27/2016 1:54 PM CLINICAL EDITOR Oxygen Saturation - - Plan of Care Date Type Specialty Providers Description 09/23/2016 Appointment Neurology Rowena Will MD [id number] [facility] [address] [place] [address] [phone] (Fax) 01/05/2017 Appointment Rowena Saavedra MD [id number] [facility] [address] [place] [address] [phone] (Fax) Health Maintenance Due Date Last Done Comments Physical (Comprehensive) 01/16/1991 Exam Pertussis Vaccine 01/16/1995 Tetanus Vaccine 01/16/2001 Cervical Cancer Screening 01/16/2005 Influenza Vaccine 02/27/2017 Results from Last 3 Months ALDOLASE (08/27/2016 3:53 PM) Component Value Range Aldolase 3.4Comment: < OR=8.1 U/L REPORT COMMENT: FASTING:NO Test Performed at: [facility] [address] JITENDRA STEEL DO,MPH ANTI SSA ANTI SSB AB (08/27/2016 3:53 PM) Component Value Range Anti-SSA <1.0 NEG <1.0 NEG AI Anti-SSB <1.0 NEGComment: <1.0 NEG AI Test Performed at: [facility] [address] JITENDRA STEEL DO,MPH ANTI-NUCLEAR ANTIBODY(NICHO) (08/27/2016 3:53 PM) Component Value Range NICHO Screen NEGATIVEComment: NEGATIVE NICHO IFA is a first line screen for detecting the presence of up to approximately 150 autoantibodies in various autoimmune diseases. A negative NICHO IFA result suggests NICHO-associated autoimmune diseases are not present at this time. Visit Physician FAQs for interpretation of all antibodies in the [place], prevalence, and association with diseases at http://education.Taste Filter/ faq/LVO964 Test Performed at: [facility] [address] JITENDRA STEEL DO,MPH PYRUVATE(PYRUVIC ACID) (08/27/2016 3:53 PM) Component Value Range Pyruvic Acid 1.63 (H)Comment: 0.30-1.50 mg/dL Test Performed at: [facility] [address] [place], [place] MICA HOPKINS MD,PHD LACTIC ACID(LACTATE) (08/27/2016 3:53 PM) Component Value Range Lactic Acid 16Comment: 4-16 mg/dL Test Performed at: [facility] [address] [place], [place] MICA HOPKINS MD,PHD CREATINE KINASE-CPK (08/27/2016 3:53 PM) Component Value Range Creatine Kinase 33Comment: 29-143 U/L Test Performed at: [facility] [address] [place] [address] JITENDRA STEEL DO,MPH
--- NOTE | 2016-09-15 11:29 | ED Integumentary General ---
General Chief Complaint: Skin/Wound Problems Stated Complaint: L ARM INFECTION Nursing Triage Note: Pt c/o L armpit swelling and pain. Pt was recently admitted and treated for celluitis to same area. Pt reports she improved while in hospital and swelling and pain started again last night. Pt states she has been taking home antibiotics as prescribed. Source: patient Exam Limitations: no limitations History of Present Illness Time seen by provider: 11:29 Initial Comments 31-year-old female patient presents to the emergency department complains of cellulitis of the left axilla. Patient reports being dismissed from the hospital on 12 September with oral Cleocin and Phenergan. States she was told previously was an infected lymph node. Reports worsening symptoms after being discharge. Reports one fever of 99.0 at home since being discharged. States there is a small spot in the right axilla as well. Timing/Duration: week, getting worse Location: extremities (left axilla) Possible Cause: no cause identified Modifying Factors: worse with other (worse with palpation) Allergies and Home Medications Allergies Coded Allergies: Sulfa (Sulfonamide Antibiotics) (Verified Allergy, Unknown, hives, 08/05/16) cefaclor (Verified Allergy, Unknown, 05/10/16) Home Medications Albuterol Sulfate 6.7 Gm Hfa.aer.ad 2 PUFF IH Q4H PRN PRN SHORTNESS OF BREATH ( Reported) Alprazolam 1 Mg Tablet 1 MG PO TID (Reported) Clindamycin HCl 150 Mg Capsule #120 450 MG PO Q6H Prescribed by: TAPAN RUBALCAVA on 09/12/16 0944 Diclofenac Sod 100 Mg Tab 100 MG PO DAILY (Reported) LAST FILLED #30 08-09-16 Escitalopram Oxalate 20 Mg Tablet 20 MG PO DAILY (Reported) Fexofenadine/Pseudoephedrine 1 Each Tab.er.24h 1 TAB PO DAILY (Reported) Gabapentin 600 Mg Tablet 600 MG PO TID (Reported) Hydrocodone/Acetaminophen 1 Each Tablet 1 TAB PO TID PRN PRN PAIN (Reported) Minocycline HCl 100 Mg Capsule #14 100 MG PO BID Prescribed by: MITCHEL VÁZQUEZ on 09/15/16 1430 Oxcarbazepine 300 Mg Tablet 300 MG PO BID (Reported) Promethazine HCl 25 Mg Tablet #30 25 MG PO Q6H PRN PRN NAUSEA/VOMITING Prescribed by: TAPAN RUBALCAVA on 09/12/16 0944 Spironolactone 25 Mg Tablet 25 MG PO DAILY (Reported) Constitutional: No chills, No fever, No malaise Respiratory: no symptoms reported Cardiovascular: no symptoms reported Gastrointestinal: no symptoms reported Musculoskeletal: no symptoms reported Skin: see HPI change in color lumps Psychiatric/Neurological: Denies Numbness, Denies Paresthesia, Denies Tingling , Denies Weakness All Other Systems Reviewed Negative Unless Noted: Yes (Negative excepted noted.) Past Issimon-Jqzahu-Pgiepp Hx Patient Social History Alcohol Use: Denies Use Recreational Drug Use: No Smoking Status: Current Everyday Smoker Type Used: Cigarettes Recent Foreign Travel: No Contact w/Someone Who Travel: No Recent Infectious Disease Expo: No Recent Hopitalizations: Yes (cellulitis) Immunizations Up To Date Tetanus Booster (TDap): Unknown Date of Pneumonia Vaccine: Mar 29, 2016 Date of Influenza Vaccine: Mar 29, 2016 Seasonal Allergies Seasonal Allergies: No Surgeries HX Surgeries: Yes Surgeries: Section, Hysterectomy Respiratory Hx Respiratory Disorders: Yes Respiratory Disorders: Asthma, Chronic Bronchitis Cardiovascular Hx Cardiac Disorders: No Neurological Hx Neurological Disorders: Yes Neurological Disorders: Seizure Disorder 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 Genitourinary Hx Genitourinary Disorders: No Gastrointestinal Hx Gastrointestinal Disorders: No Musculoskeletal Hx Musculoskeletal Disorders: Yes ("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") Musculoskeletal Disorders: Fibromyalgia, Chronic Back Pain Endocrine Hx Endocrine Disorders: No HEENT HX ENT Disorders: No Cancer Hx Cancer: No Psychosocial Hx Psychiatric Problems: Yes Behavioral Health Disorders: Anxiety, ODD, PTSD, Depression Integumentary HX Skin/Integumentary Disorder: No Blood Transfusions Hx Blood Disorders: No Adverse Reaction to a Blood Tr: No Reviewed Nursing Assessment Reviewed/Agree w Nursing PMH: Yes Family Medical History Significant Family History: No Pertinent Family Hx Physical Exam Vital Signs Vital Sign - Last 12Hours 09/15/16 11:10 Temp 98.8 Pulse 90 Resp 18 B/P 133/69 Pulse Ox 100 O2 Delivery Room Air Capillary Refill : Less Than 3 Seconds General Appearance: WD/WN no apparent distress Cardiovascular: normal peripheral pulses regular rate, rhythm no murmur Respiratory: lungs clear normal breath sounds no respiratory distress Extremities: normal range of motion normal capillary refill other (5 x 6 cm area of erythema, swelling, and induration left axilla with an enlarged lymph node. Small 2 x 1 cm area of fluctuance superior to the lymph node. Tender to palpation. Right axilla shows a 1 x 0.5 cm infected sebaceous cyst.) Neurologic/Psychiatric: no motor/sensory deficits alert normal mood/affect oriented x 3 Skin: warm/dry other (5 x 6 cm area of erythema, swelling, and induration left axilla with an enlarged lymph node. Small 2 x 1 cm area of fluctuance superior to the lymph node. Tender to palpation. Right axilla shows a 1 x 0.5 cm infected sebaceous cyst.) Skin Problem Location: other (bilateral axilla) Skin Problem Character: erythema, swelling, tenderness, warm, other (5 x 6 cm area of erythema, swelling, and induration left axilla with an enlarged lymph node. Small 2 x 1 cm area of fluctuance superior to the lymph node. Tender to palpation. Right axilla shows a 1 x 0.5 cm infected sebaceous cyst.) I&D : Site: left axilla Blade Size: 11 I & D Procedure: betadine prep sterile drapes applied sterile dressing applied Packing/Drain: / Ligia Drain Progress large amount of purulent drainage noted. culture obtained and sent to lab for testing. ligia drain secured with 3-0 ethilon. blood loss minimal. patient tolerated the procedure well. Progress/Results/Core Measures Results/Orders Lab Results Laboratory Tests Test 09/15/16 12:00 Range/Units Basophils # (Auto) 0.0 0.0-0.1 10^3/uL Basophils (%) (Auto) 0 0-10 % C-Reactive Protein High Sensitivity 2.48 H 0.00-0.50 MG/DL Eosinophils # (Auto) 0.1 0.0-0.3 10^3/uL Eosinophils (%) (Auto) 1 0-10 % Hematocrit 33 L 35-52 % Hemoglobin 11.1 L 11.5-16.0 G/DL Lymphocytes # (Auto) 1.7 1.0-4.0 X 10^3 Lymphocytes (%) (Auto) 13 12-44 % Mean Corpuscular Hemoglobin 29 25-34 PG Mean Corpuscular Hemoglobin Concent 33 32-36 G/DL Mean Corpuscular Volume 85 80-99 FL Mean Platelet Volume 10.2 7.4-10.4 FL Monocytes # (Auto) 0.9 0.0-1.0 X 10^3 Monocytes (%) (Auto) 7 0-12 % Neutrophils # (Auto) 10.6 H 1.8-7.8 X 10^3 Neutrophils (%) (Auto) 79 H 42-75 % Platelet Count 427 H 130-400 10^3/uL Red Blood Count 3.90 L 4.35-5.85 10^6/uL Red Cell Distribution Width 13.9 10.0-14.5 % White Blood Count 13.4 H 4.3-11.0 10^3/uL My Orders Orders-MITCHEL VÁZQUEZ Saline Lock/Iv-Start (09/15/16 11:44) Cbc With Automated Diff (09/15/16 11:44) Hs C Reactive Protein (09/15/16 11:44) Fentanyl Injection (Sublimaze Injection (09/15/16 11:44) Us Left Upper Ext [id number] (09/15/16 12:01) Morphine Injection (Morphine Injection (09/15/16 13:00) Lidocaine/Epi 1% 1:100,000 (Xylocaine /E (09/15/16 13:00) Vital Signs/I&O Vital Sign - Last 12Hours 09/15/16 09/15/16 11:10 14:45 Temp 98.8 Pulse 90 69 Resp 18 18 B/P 133/69 Pulse Ox 100 98 O2 Delivery Room Air Blood Pressure Mean: 90 Diagnostic Imaging Diagonstic Imaging: Ultrasound Plain Films/CT/US/NM/MRI: other (left axilla) Reviewed: Reviewed by Me (radiology report reviewed by me) Departure Communication Progress Notes Laboratory and diagnostic findings discussed with the patient. Patient shows decreased white count and CRP. Plan for discharge to home with addition of minocycline to Cleocin. Patient states she has an appointment with [facility]. I've instructed patient to keep that appointment and to return to the emergency department sooner if needed. Impression Impression: Primary Impression: Abscess of axilla, left Additional Impression: Infected sebaceous cyst Disposition: HOME, SELF-CARE Condition: Improved Departure-Patient Inst. Decision time for Depature: 14:29 Referrals: [facility] (PCP/Family) Primary Care Physician Patient Instructions: Abscess Incision and Drainage (DC) Add. Discharge Instructions: All discharge instructions reviewed with patient and/or family. Voiced understanding. Medications as instructed. Continue usual home medications. Ibuprofen 800 mg by mouth every 8 hours as needed for pain. Ice packs or heating pads as needed for pain. Shower with antibacterial soap. Cover wound with gauze and tape. Follow-up with your primary care physician in the next 2- 3 days for recheck, call tomorrow morning for appointment time. Return to the emergency department for worsened pain, swelling, redness, fever, or any other concerns. Scripts Minocycline HCl 100 Mg [id number] Mg PO BID #14 CAP Ref 0 Prov:MITCHEL VÁZQUEZ 09/15/16 MITCHEL VÁZQUEZ Sep 15, 2016 11:29
[2016-09-15] MEDS ORDERED: fentaNYL INJECTION 100 MCG/2 ML AMP IVP STA (11:44)
[2016-09-15 12:06] LABS: BASOPHILS % (AUTO) 0 % (0-10); EOSINOPHILS # (AUTO) 0.1 10^3/uL (0.0-0.3); EOSINOPHILS % (AUTO) 1 % (0-10); LYMPHOCYTES # (AUTO) 1.7 X 10^3 (1.0-4.0); LYMPHOCYTES % (AUTO) 13 % (12-44); MEAN CORPUSCULAR HEMOGLOBIN 29 PG (25-34); MEAN CORPUSCULAR HGB CONC 33 G/DL (32-36); MEAN CORPUSCULAR VOLUME 85 FL (80-99); MEAN PLATELET VOLUME 10.2 FL (7.4-10.4); MONOCYTES # (AUTO) 0.9 X 10^3 (0.0-1.0); MONOCYTES % (AUTO) 7 % (0-12); NEUTROPHILS # (AUTO) 10.6 X 10^3 (1.8-7.8); NEUTROPHILS % (AUTO) 79 % (42-75); PLATELET COUNT 427 10^3/uL (130-400); RED CELL DISTRIBUTION WIDTH 13.9 % (10.0-14.5); WHITE BLOOD COUNT 13.4 10^3/uL (4.3-11.0)
[2016-09-15] MEDS ORDERED: LIDOCAINE/EPI 1%-1:100,000 (XYLOCAINE) 20ML INJ STA (13:00)
[2016-09-15] MEDS ORDERED: morphine INJ 10 MG/ML 1ML (SYR OR VIAL) IVP STA (13:00)
--- NOTE | 2016-09-15 13:08 | Diagnostic Imaging Report ---
Ultrasound of the left axilla. INDICATION: Painful lump and redness in the left axilla. FINDINGS: There is a lobulated hypoechoic area measuring 4.2 x 1.8 x 3.3 cm with no internal vascularity that may relate to an abscess. There is an enlarged lymph node measuring 3.3 x 1.8 x 2.4 cm. IMPRESSION: There is a subcutaneous complicated fluid collection suggested likely related to abscess. Dictated by: Dictated on workstation # [id number]
[2016-09-15] MEDS ORDERED: MINO100C2 PO (14:30)
[2016-09-15 14:45] VITALS: BP 109/64
== END 2016-09-15 14:55 | disposition home or self-care (01) ==
LOC: EDUNIT# 10:07 → ER 10:08
DX: L02.412 Cutaneous abscess of left axilla (principal); F17.210 Nicotine dependence, cigarettes, uncomplicated
CPT/HCPCS: 10060; 36415; 76881; 85025; 86141; 87070; 87077; 87186; 87205; 96374; 96375

== ENCOUNTER 2016-11-30 17:03 | Emergency (ER) | payer MEDICARE, MEDICAID ==
[~2016-11-30] VITALS: Ht 167.6 cm; Wt 63.5 kg
[~2016-11-30 17:03] MED LIST changes: +MINO100C2 PO
--- NOTE | 2016-11-30 18:23 | Diagnostic Imaging Report ---
INDICATION: Fall. EXAMINATION: Three views of the right ankle. FINDINGS: The ankle mortise is intact. Soft tissue swelling is noted over the lateral malleolus. No evidence of fractures. The talar plafond shows no evidence of cortical defect. IMPRESSION: Soft tissue swelling with no bony abnormalities. Dictated by: Dictated on workstation # [id number]
--- NOTE | 2016-11-30 18:33 | ED Lower Extremity ---
General Chief Complaint: Lower Extremity Stated Complaint: R FOOT INJ Nursing Triage Note: TWISTED RIGHT ANKLE Nursing Sepsis Screen: No Definite Risk Source: patient Exam Limitations: no limitations History of Present Illness Time seen by provider: 18:33 Initial Comments 31-year-old female patient presents to the emergency department complains of right ankle pain after twisting her ankle while going down the stairs. Denies following and hitting her head. Denies loss of consciousness. Location Injury Occurred: home Onset: this afternoon Pain/Injury Location: right ankle Method of Injury: twisted Modifying Factors: Worse With Movement Allergies and Home Medications Allergies Coded Allergies: Sulfa (Sulfonamide Antibiotics) (Verified Allergy, Unknown, hives, 08/05/16) cefaclor (Verified Allergy, Unknown, 05/10/16) Home Medications Albuterol Sulfate 6.7 Gm Hfa.aer.ad, 2 PUFF IH Q4H PRN for SHORTNESS OF BREATH, (Reported) Alprazolam 1 Mg Tablet, 1 MG PO TID, (Reported) Diclofenac Sod 100 Mg Tab, 100 MG PO DAILY, (Reported) LAST FILLED #30 08-09-16 Escitalopram Oxalate 20 Mg Tablet, 20 MG PO DAILY, (Reported) Fexofenadine/Pseudoephedrine 1 Each Tab.er.24h, 1 TAB PO DAILY, (Reported) Gabapentin 600 Mg Tablet, 600 MG PO TID, (Reported) Hydrocodone/Acetaminophen 1 Each Tablet, 1 TAB PO TID PRN for PAIN, (Reported) Oxcarbazepine 300 Mg Tablet, 300 MG PO BID, (Reported) Promethazine HCl 25 Mg Tablet, 25 MG PO Q6H PRN for NAUSEA/VOMITING, #30 Ref 0 Prescribed by: TAPAN RUBALCAVA on 09/12/16 0944 Spironolactone 25 Mg Tablet, 25 MG PO DAILY, (Reported) Past Bqfrajk-Anqtiv-Jqwbky Hx Patient Social History Alcohol Use: Denies Use Recreational Drug Use: No Smoking Status: Current Everyday Smoker Type Used: Cigarettes 2nd Hand Smoke Exposure: Yes Recent Foreign Travel: No Contact w/Someone Who Travel: No Recent Infectious Disease Expo: No Recent Hopitalizations: No Immunizations Up To Date Tetanus Booster (TDap): Unknown Date of Pneumonia Vaccine: Mar 29, 2016 Date of Influenza Vaccine: Mar 29, 2016 Seasonal Allergies Seasonal Allergies: No Surgeries HX Surgeries: Yes Surgeries: Section, Hysterectomy Respiratory Hx Respiratory Disorders: Yes Respiratory Disorders: Asthma, Chronic Bronchitis Cardiovascular Hx Cardiac Disorders: No Neurological Hx Neurological Disorders: Yes Neurological Disorders: Seizure Disorder 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 Genitourinary Hx Genitourinary Disorders: No Gastrointestinal Hx Gastrointestinal Disorders: No Musculoskeletal Hx Musculoskeletal Disorders: Yes ("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") Musculoskeletal Disorders: Fibromyalgia, Chronic Back Pain Endocrine Hx Endocrine Disorders: No HEENT HX ENT Disorders: No Cancer Hx Cancer: No Psychosocial Hx Psychiatric Problems: Yes Behavioral Health Disorders: Anxiety, ODD, PTSD, Depression Integumentary HX Skin/Integumentary Disorder: No Blood Transfusions Hx Blood Disorders: No Adverse Reaction to a Blood Tr: No Family Medical History Significant Family History: No Pertinent Family Hx Physical Exam Vital Signs Vital Sign - Last 12Hours 11/30/16 18:02 Temp 98.2 Pulse 59 Resp 18 B/P (MAP) 128/70 Pulse Ox 100 O2 Delivery Room Air Capillary Refill : Less Than 3 Seconds Progress/Results/Core Measures Results/Orders My Orders Orders - MITCHEL VÁZQUEZ Ankle, Right, 3 Views (11/30/16 18:00) Hydrocodone/Apap 5/325 Tablet (Lortab 5 (11/30/16 18:41) Vital Signs/I&O Vital Sign - Last 12Hours 11/30/16 18:02 Temp 98.2 Pulse 59 Resp 18 B/P (MAP) 128/70 Pulse Ox 100 O2 Delivery Room Air Blood Pressure Mean: 89 Departure Impression Impression: Primary Impression: Ankle sprain Disposition: 01 HOME, SELF-CARE Condition: Improved Departure-Patient Inst. Decision time for Depature: 18:43 Referrals: [facility] (PCP/Family) Primary Care Physician Patient Instructions: Ankle Sprain (DC) Add. Discharge Instructions: All discharge instructions reviewed with patient and/or family. Voiced understanding. Continue usual home medications. Elevate right ankle on pillows. Ice pack for 20 minute intervals as needed for pain. Yaw wrap as instructed. Ankle brace as instructed. Follow-up with your family practitioner for recheck if no improvement in symptoms in 7-10 days. Return to the emergency department for worsened symptoms or any other concerns MITCHEL VÁZQUEZ Nov 30, 2016 18:33
[2016-11-30] MEDS ORDERED: HYDROcodone/APAP 5 MG/325 MG (LORTAB) TAB PO STA (18:41)
[2016-11-30 18:52] VITALS: BP 126/68
== END 2016-11-30 18:50 | disposition home or self-care (01) ==
LOC: EDUNIT# 17:03 → ER 17:04
DX: S93.401A Sprain of unspecified ligament of right ankle, initial encounter (principal); J44.9 Chronic obstructive pulmonary disease, unspecified; G40.909 Epilepsy, unspecified, not intractable, without status epilepticus; F17.210 Nicotine dependence, cigarettes, uncomplicated; X50.1XXA Overexertion from prolonged static or awkward postures, initial encounter
CPT/HCPCS: 73610; 99283

== ENCOUNTER 2017-02-04 10:47 | Outpatient (RCR) | payer OTHER, MEDICAID ==
[~2017-02-04 10:47] MED LIST changes: +AZIT250T12 PO; -AZIT250T5 PO; +DICL100T3 PO; -NF-DICLOTA PO
== END 2017-03-06 10:44 | disposition home or self-care (01) ==
PROVIDERS: ATTEND Nurse Practitioner Community Health
DX: M54.5 Low back pain (principal); V99.XXXD Unspecified transport accident, subsequent encounter

== ENCOUNTER → 2017-07-09 | Outpatient (CLI) | payer MEDICARE, MEDICAID ==
--- NOTE | 2017-07-09 11:58 | Diagnostic Imaging Report ---
MRI thoracic spine without contrast. INDICATION: Back pain. Multiplanar images utilizing both T1 and T2 weighted sequences were obtained. There are no prior studies available for comparison. FINDINGS: The T2 parasagittal images show the vertebral body heights and alignment to be generally within normal limits. The intervertebral spaces are fairly well maintained. There are slight disc bulges at every level from T4-T5 to T11-T12. However, the thecal sac is relatively generous. There is no evidence for spinal stenosis or nerve root encroachment at any level. There is no abnormal signal arising from the cord or the vertebral bodies to indicate an acute abnormality. There is no sign of a paraspinal mass. IMPRESSION: 1. There is mild degenerative disc disease in the mid and lower thoracic spine. There is no evidence for spinal stenosis or nerve root encroachment at any level, however. 2. There is no sign of an acute bony abnormality or of a cord lesion. Dictated by: Dictated on workstation # [id number]
--- NOTE | 2017-07-09 12:26 | Diagnostic Imaging Report ---
PROCEDURE: MRI lumbar spine. TECHNIQUE: Multiplanar, multisequence MRI of the lumbar spine was performed without contrast. INDICATION: Back pain. There are no previous MRI examinations available for comparison. The previous CT thoracic and lumbar spine exam of 08/05/16 failed to show any sign of an acute bony abnormality. FINDINGS: On this study, the T2 sagittal images show the vertebral body heights and alignment to be within normal limits and the intervertebral spaces to be well maintained. The thecal sac is generous. There is no evidence for spinal stenosis or nerve root encroachment at any level. There is no abnormal signal arising from the osseous structures to suggest bone edema or a fracture. The cord where visualized is unremarkable. There is no paraspinal mass noted. IMPRESSION: 1. There is no evidence for an acute bony abnormality or for a cord lesion. 2. There is no sign of spinal stenosis or nerve root encroachment at any level. Dictated by: Dictated on workstation # [id number]
== END ==
LOC: RAD 10:54
PROVIDERS: ATTEND Nurse Practitioner Community Health
DX: M51.14 Intervertebral disc disorders with radiculopathy, thoracic region (principal)
CPT/HCPCS: 72146; 72148